=== PATIENT | female | born 1970 | race Caucasian/White ===

== ENCOUNTER 2016-07-08 18:06 | Emergency (ER) | payer MEDICAID ==
[~2016-07-08] VITALS: Ht 157.5 cm; Wt 66.0 kg
[2016-07-08 22:28] VITALS: BP 148/83
== END 2016-07-08 22:48 | disposition home or self-care (01) ==
LOC: EMS 18:08
DX: B02.9 Zoster without complications (principal); R51 Headache
CPT/HCPCS: 99283